=== PATIENT | male | born 1995 | race Hispanic/Latino ===

== ENCOUNTER 2019-04-21 19:26 | Emergency (ER) | payer BC ==
[2019-04-21] MEDS ORDERED: DIAZEPAM 5 MG TABLET ONE (20:44)
[2019-04-21] MEDS ORDERED: FENTANYL CITR 100 MCG/2 ML ONE (20:44)
--- NOTE | 2019-04-21 21:46 | EDPHYS ---
Physician Documentation [facility] Name: Antonio Watkins Age: 24 yrs Sex: Male : 1995 Arrival Date: 04/21/2019 Time: 19:31 Bed 7 Private MD: ED Physician Jaswinder Beltrán HPI: 04/21 21:06 This 24 yrs old Male presents to ER via Ambulatory with complaints of Shoulder snw Pain. 21:06 The patient or guardian complains of pain, that is acute, swelling, tenderness. left snw shoulder and left clavicle. Context: The problem was sustained at a Gym, bench pressing on 4th lift, pt felt a pop and chest pain, resulted from lifting or carrying, a heavy object, The patient experiences decreased range of motion, The patient reports no obvious deformity. Onset: The symptoms/episode began/occurred suddenly, 2 day(s) ago, and became persistent. Associated signs and symptoms: Pertinent positives: chest pain, neck pain, severe pain. Severity of symptoms: At their worst the symptoms were moderate, severe. Treatment prior to arrival includes: no previous treatment. The patient has not experienced similar symptoms in the past. The patient has been recently seen by a physician: other ER, told he had a bicep tear. . Historical: - Allergies: 19:37 No Known Allergies; aa1 - Home Meds: 19:37 None [Active]; aa1 - PMHx: 19:37 Heart Murmur; aa1 - PSHx: 19:37 None; aa1 - Immunization history:: Last tetanus immunization: > 10 years ago. - Social history:: Smoking status: Patient/guardian denies using tobacco. - Ebola Screening: : No symptoms or risks identified at this time. ROS: 21:01 Constitutional: Negative for fever, chills, and weight loss, Eyes: Negative for injury, snw pain, redness, and discharge, ENT: Negative for injury, pain, and discharge, Neck: Negative for injury, pain, and swelling, Cardiovascular: Negative for palpitations and edema, positive for chest pain to left and pain up left neck Respiratory: Negative for shortness of breath, cough, wheezing, and pleuritic chest pain, Abdomen/GI: Negative for abdominal pain, nausea, vomiting, diarrhea, and constipation, Back: Negative for injury and pain, : Negative for injury, bleeding, discharge, and swelling, MS/Extremity: Negative for deformity, + injury/bruising to left arm Skin: Negative for injury, rash, positive discoloration to left arm and axilla, Neuro: Negative for headache, weakness, numbness, tingling, and seizure. Exam: 21:02 Constitutional: This is a well developed, well nourished patient who is awake, alert, snw and in no acute distress. Head/Face: Normocephalic, atraumatic. Eyes: Pupils equal round and reactive to light, extra-ocular motions intact. Lids and lashes normal. Conjunctiva and sclera are non-icteric and not injected. Cornea within normal limits. Periorbital areas with no swelling, redness, or edema. ENT: Nares patent. No nasal discharge, no septal abnormalities noted. Tympanic membranes are normal and external auditory canals are clear. Oropharynx with no redness, swelling, or masses, exudates, or evidence of obstruction, uvula midline. Mucous membranes moist. 21:02 Cardiovascular: Regular rate and rhythm with a normal S1 and S2. No gallops, murmurs, or rubs. Normal PMI, no JVD. No pulse deficits. Abdomen/GI: Soft, non-tender, with normal bowel sounds. No distension or tympany. No guarding or rebound. No evidence of tenderness throughout. Back: No spinal tenderness. No costovertebral tenderness. Full range of motion. 21:02 Neuro: Awake and alert, GCS 15, oriented to person, place, time, and situation. Cranial nerves II-XII grossly intact. Motor strength 5/5 in all extremities. Sensory grossly intact. Cerebellar exam normal. Normal gait. Psych: Awake, alert, with orientation to person, place and time. Behavior, mood, and affect are within normal limits. 21:02 Neck: External neck: swelling, tenderness, that is moderate, of the left anterior aspect of neck. 21:02 Chest/axilla: Inspection: assymetry, of chest wall musculature - tender, swollen, mildly bruised left pectoral area, Palpation: tenderness, that is moderate, of the left clavicle and anterior aspect of left upper chest. 21:02 Respiratory: the patient does not display signs of respiratory distress, Respirations: shallow respirations, increases discomfort with large, deep breaths. 21:02 Musculoskeletal/extremity: Extremities: grossly normal except: noted in the anterior aspect of left upper chest: contusion, pain, swelling, tenderness, Circulation is intact in all extremities. 21:02 Skin: Appearance: normal except for affected area, injury, contusion(s), that are deep, of the left axilla and left bicep. Vital Signs: 19:37 BP 153 / 68; Pulse 92; Resp 16; Temp 98.9; Pulse Ox 99% on R/A; Weight 81.65 kg; Height aa1 5 ft. 6 in. (167.64 cm); Pain 9/10; 20:55 BP 150 / 70; Pulse 80; Resp 18; Pulse Ox 99% ; ea 21:39 BP 138 / 58; Pulse 78; Resp 18; Pulse Ox 98% ; ea 19:37 Body Mass Index 29.05 (81.65 kg, 167.64 cm) aa1 MDM: 20:24 Patient medically screened. snw 21:47 Data reviewed: vital signs, nurses notes. Data interpreted: Pulse oximetry: on room air snw is 98 %. Interpretation: normal. Counseling: I had a detailed discussion with the patient and/or guardian regarding: the historical points, exam findings, and any diagnostic results supporting the discharge/admit diagnosis, radiology results, the need for outpatient follow up, to return to the emergency department if symptoms worsen or persist or if there are any questions or concerns that arise at home. Special discussion: Based on the patient's history, exam, and Dx evaluation, there is no indication for emergent intervention or inpatient Tx. It is understood by the patient/guardian that if the Sx's persist or worsen they need to return immediately for re-evaluation. Based on the history and exam findings, there is no indication for further emergent testing or inpatient evaluation. I discussed with the patient/guardian the need to see the orthopedic surgeon for further evaluation of the symptoms. 04/21 20:24 Order name: Carotid Artery Bilateral US snw 04/21 20:24 Order name: Chest Pa And Lat (2 Views) XRAY snw 04/21 20:24 Order name: INCENTIVE SPIROMETRY snw 04/21 20:49 Order name: Shoulder Immobilizer: post xrays; Complete Time: 21:58 snw Administered Medications: 20:32 Drug: fentaNYL (PF) 50 mcg Route: IM; Site: right gluteus; la1 21:58 Follow up: Response: No adverse reaction; Pain is decreased ea 20:32 Drug: Valium 5 mg Route: PO; la1 21:58 Follow up: Response: No adverse reaction; Pain is decreased ea Disposition: 04/21/19 21:46 Discharged to Home. Impression: Pectoral muscle tear. - Condition is Stable. - Discharge Instructions: Muscle Strain, Muscle Pain, Adult, RICE for Routine Care of Injuries, How to Use a Shoulder Immobilizer, Heat Therapy. - Prescriptions for Tylenol- Codeine #3 300-30 mg Oral Tablet - take 2 tablets by ORAL route every 6 hours As needed; 20 tablet. orphenadrine citrate 100 mg Oral Tablet Sustained Release - take 1 tablet by ORAL route 2 times per day As needed; 20 tablet. - Work release form, Medication Reconciliation Form, Thank You Letter, Antibiotic Education, Prescription Opioid Use form. - Follow up: Private Physician; When: Tomorrow; Reason: Recheck today's complaints, Re-evaluation by your physician. Signatures: Dispatcher [employer] Alexa Covington RN RN aa1 Heather Montes De Oca, FOX FARMER-C FOX FARMER-Csnw Jatin Ken RN RN la1 Sheridan Almonte RN RN ea Corrections: (The following items were deleted from the chart) 22:00 21:46 04/21/2019 21:46 Discharged to Home. Impression: Pectoral muscle tear. Condition ea is Stable. Forms are Medication Reconciliation Form, Thank You Letter, Antibiotic Education, Prescription Opioid Use. Follow up: Private Physician; When: Tomorrow; Reason: Recheck today's complaints, Re-evaluation by your physician. snw
--- NOTE | 2019-04-21 21:46 | ER ---
Nurse's Notes [facility] Name: Antonio Watkins Age: 24 yrs Sex: Male : 1995 Arrival Date: 04/21/2019 Time: 19:31 Bed 7 Private MD: Diagnosis: Pectoral muscle tear Presentation: 04/21 19:35 Presenting complaint: Patient states: he was bench pressing in the gym 2 days ago and aa1 felt a rip in his L arm. C/O pain to L pectoral and bicep. Significant bruising noted to L bicep. Transition of care: patient was not received from another setting of care. Onset of symptoms was April 19, 2019. Risk Assessment: Do you want to hurt yourself or someone else?. Initial Sepsis Screen: Does the patient meet any 2 criteria? No. Patient's initial sepsis screen is negative. Does the patient have a suspected source of infection? No. Patient's initial sepsis screen is negative. Care prior to arrival: None. 19:35 Method Of Arrival: Ambulatory aa1 19:35 Acuity: NEO 4 aa1 Triage Assessment: 19:37 General: Appears in no apparent distress. comfortable, Behavior is calm, cooperative, aa1 appropriate for age. Historical: - Allergies: 19:37 No Known Allergies; aa1 - Home Meds: 19:37 None [Active]; aa1 - PMHx: 19:37 Heart Murmur; aa1 - PSHx: 19:37 None; aa1 - Immunization history:: Last tetanus immunization: > 10 years ago. - Social history:: Smoking status: Patient/guardian denies using tobacco. - Ebola Screening: : No symptoms or risks identified at this time. Screenin:46 Abuse screen: Denies threats or abuse. Nutritional screening: No deficits noted. la1 Tuberculosis screening: No symptoms or risk factors identified. Fall Risk None identified. Assessment: 19:45 General: Appears in no apparent distress. Behavior is calm, cooperative. Pain: la1 Complains of pain in left clavicle and anterior aspect of left upper chest and left bicep. bruising noted to left bicep area, swollen area to left pectoral area. Neuro: Level of Consciousness is awake, alert, obeys commands, Oriented to person, place, time, situation. Cardiovascular: Capillary refill < 3 seconds Patient's skin is warm and dry. Respiratory: Airway is patent Respiratory effort is even, unlabored, Respiratory pattern is regular, symmetrical. GI: No signs and/or symptoms were reported involving the gastrointestinal system. : No signs and/or symptoms were reported regarding the genitourinary system. 20:35 General: Appears in no apparent distress. Behavior is calm, cooperative. Pain: ea Complains of pain in anterior aspect of left upper chest. Neuro: Level of Consciousness is awake, alert, obeys commands, Oriented to person, place, time, situation. Cardiovascular: Patient's skin is warm and dry. Respiratory: Airway is patent Respiratory effort is even, unlabored, Respiratory pattern is regular, symmetrical. GI: No signs and/or symptoms were reported involving the gastrointestinal system. : No signs and/or symptoms were reported regarding the genitourinary system. 20:36 Reassessment: Patient is alert, oriented x 3, equal unlabored respirations, skin ea warm/dry/pink. Respiratory at bedside educating pt on incentive spirometry use. 21:40 Reassessment: Patient and/or family updated on plan of care and expected duration. Pain ea level reassessed. Patient is alert, oriented x 3, equal unlabored respirations, skin warm/dry/pink. 21:59 Reassessment: Patient and/or family updated on plan of care and expected duration. Pain ea level reassessed. Patient is alert, oriented x 3, equal unlabored respirations, skin warm/dry/pink. Discharge instruction given to patient, verbalized the understanding of instruction. Pt left ED ambulatory with significant other. Vital Signs: 19:37 BP 153 / 68; Pulse 92; Resp 16; Temp 98.9; Pulse Ox 99% on R/A; Weight 81.65 kg; Height aa1 5 ft. 6 in. (167.64 cm); Pain 9/10; 20:55 BP 150 / 70; Pulse 80; Resp 18; Pulse Ox 99% ; ea 21:39 BP 138 / 58; Pulse 78; Resp 18; Pulse Ox 98% ; ea 19:37 Body Mass Index 29.05 (81.65 kg, 167.64 cm) aa1 ED Course: 19:31 Patient arrived in ED. ag3 19:36 Triage completed. aa1 19:37 Arm band placed on right wrist. Patient placed in an exam room, on a stretcher. aa1 19:39 Jatin Ken, RN is Primary Nurse. la1 19:46 Call light in reach. Side rails up X 1. Adult w/ patient. la1 20:16 Heather Mont[facility] De Oca [facility]C [facility] snw 20:16 Jaswinder Beltrán MD is Attending Physician. snw 21:05 Chest Pa And Lat (2 Views) XRAY In Process Unspecified. EDMS 21:16 Carotid Artery Bilateral US In Process Unspecified. EDMS 22:00 No provider procedures requiring assistance completed. Patient did not have IV access ea during this emergency room visit. Administered Medications: 20:32 Drug: fentaNYL (PF) 50 mcg Route: IM; Site: right gluteus; la1 21:58 Follow up: Response: No adverse reaction; Pain is decreased ea 20:32 Drug: Valium 5 mg Route: PO; la1 21:58 Follow up: Response: No adverse reaction; Pain is decreased ea Outcome: 21:46 Discharge ordered by MD. snw 21:59 Discharged to home ambulatory, with family. ea 21:59 Condition: improved 21:59 Discharge instructions given to patient, Instructed on discharge instructions, follow up and referral plans. medication usage, Demonstrated understanding of instructions, follow-up care, medications, Prescriptions given X 2. 22:00 Patient left the ED. ea Signatures: Dispatcher [employer] EDMS Alexa Aguirre RN RN aa1 Heather Montes De Oca FNP-C [employer]ERILE [employer] TECH-Csnw Jatin Ken RN RN laSheridan Alvarado RN Stephanie Kwan ea Brandan
--- NOTE | 2019-04-22 08:41 | RAD REPORT ---
EXAM DESCRIPTION: US - CP - 04/21/2019 9:15 pm CLINICAL HISTORY: Neck pain COMPARISON: None. TECHNIQUE: Real-time sonographic evaluation of both carotid systems was performed. Gutiérrez scale and Do ppler interrogation were performed with waveform tracing bilaterally. FINDINGS: Normal high resistance waveforms are noted in both external carotid arteries. The common c arotid arteries and internal carotid arteries show normal low resistance waveforms. No significant plaque formation is seen. Peak systolic and end diastolic velocity values and the ICA/ CCA ratios are in the non-hemodynamically significant range. Antegrade flow seen in both vertebral arteries. Velocity values and ratios were recorded and are retained in the patient's imaging records. IMPRESSION: No dissection or acute vascular finding. No evidence of a stenosis.
--- NOTE | 2019-04-22 08:50 | RAD REPORT ---
EXAM DESCRIPTION: RAD - Chest Pa And Lat (2 Views) - 04/21/2019 9:08 pm CLINICAL HISTORY: Chest pain following lifting injury COMPARISON: November 2017 TECHNIQUE: PA and lateral views of the chest were obtained. FINDINGS: The lungs are clear. Heart size is normal and central vasculature is within normal limit s. No pleural effusion or pneumothorax seen. No acute bony finding noted. No aortic abnormality. No interval change identified. IMPRESSION: No acute cardiopulmonary process.
== END 2019-04-21 22:00 | disposition home or self-care (01) ==
LOC: ER 19:26
DX: S29.011A Strain of muscle and tendon of front wall of thorax, initial encounter (principal); X50.0XXA Overexertion from strenuous movement or load, initial encounter; Y93.B9 Activity, other involving muscle strengthening exercises; Y92.39 Other specified sports and athletic area as the place of occurrence of the external cause; R01.1 Cardiac murmur, unspecified
CPT/HCPCS: 71046; 93880; 96372; 99283; J3010

== ENCOUNTER 2019-04-23 22:18 | Emergency (ER) | payer BC ==
[2019-04-23] MEDS ORDERED: NA CHLORIDE 0.9% 1,000 ML ONE (23:12)
[2019-04-23 23:34] LABS: Absolute Monocytes 0.7 K/uL (0.1-1.3); Absolute Neutrophil 7.2 K/uL (1.8-8.0); Basophils % 0.3 % (0-1.3); Eosinophils % 0.1 % (0-4.4); Hematocrit 45.6 % (39.6-49.0); Lymphocytes % 19.8 % (15.3-44.8); MPV 10.1 fL (7.6-11.3); Monocytes % 7.2 % (3.3-12.3); RBC Red Blood Cell Count 5.28 M/uL (4.33-5.43)
[2019-04-23 23:39] LABS: Protime INR 0.98
[2019-04-23 23:51] LABS: ALT/SGPT 35 U/L (12-78); AST/SGOT 24 U/L (15-37); Albumin 4.1 g/dL (3.4-5.0); Alkaline Phosphatase 84 U/L (45-117); BUN Blood Urea Nitrogen 10 mg/dL (7-18); Bicarbonate 31 mmol/L (21-32); Bilirubin Direct < 0.1 mg/dL (0-0.2); Bilirubin Total 0.3 mg/dL (0.2-1.0); Glucose Level 104 mg/dL (74-106); Potassium 3.1 mmol/L (3.5-5.1); Protein, Total 8.3 g/dL (6.4-8.2); Sodium Level 139 mmol/L (136-145)
[2019-04-24 00:29] LABS: Barbiturates NEGATIVE (NEGATIVE); Benzodiazepines NEGATIVE (NEGATIVE); Cocaine NEGATIVE (NEGATIVE); METHAMPHETAM NEGATIVE (NEGATIVE); Methadone NEGATIVE (NEGATIVE); Opiates POSITIVE (NEGATIVE); Phencyclidine NEGATIVE (NEGATIVE); THC Cannibis NEGATIVE (NEGATIVE)
[2019-04-24 00:32] LABS: Urine Blood NEGATIVE (NEG); Urine Glucose NEGATIVE (NEG); Urine Protein NEGATIVE (NEG); Urine Specific Gravity <1.005 (1.005-1.030); Urine pH 5.5 (5.0-7.0)
[2019-04-24] MEDS ORDERED: POTASSIUM CL SA 10 MEQ TAB PO ONE (00:44)
--- NOTE | 2019-04-24 03:16 | ER ---
Nurse's Notes [facility] Name: Antonio Watkins Age: 24 yrs Sex: Male : 1995 Arrival Date: 04/23/2019 Time: 22:21 Bed 18 Private MD: Rohit Jackson Diagnosis: Tylenol Overdose, non-toxic Presentation: 04/23 22:30 Presenting complaint: Patient states: "I intentionally took 12-13 tablets of Tylenol cc3 with Codeine plus 2 tablets of sleeping pills at around 2000H tonight because I'm depressed with a lot of things. I also took 2 bottles of beer tonight" Patient verbally said that he has no intention of killing himself nor others. Transition of care: patient was not received from another setting of care. Onset of symptoms was April 23, 2019. Risk Assessment: Do you want to hurt yourself or someone else? Patient reports no desire to harm self or others. Initial Sepsis Screen: Does the patient meet any 2 criteria? No. Patient's initial sepsis screen is negative. Does the patient have a suspected source of infection? No. Patient's initial sepsis screen is negative. Care prior to arrival: None. 22:30 Method Of Arrival: Ambulatory cc3 22:30 Acuity: NEO 2 cc3 Triage Assessment: 22:30 General: Appears in no apparent distress. comfortable, Behavior is calm, cooperative, cc3 appropriate for age. Pain: Denies pain. EENT: No signs and/or symptoms were reported regarding the EENT system. Neuro: Level of Consciousness is awake, alert, obeys commands, Oriented to person, place, time, situation, Appropriate for age. Cardiovascular: Denies chest pain, Patient's skin is warm and dry. Respiratory: Airway is patent Respiratory effort is even, unlabored, Respiratory pattern is regular, symmetrical. GI: Abdomen is round non-distended. : No signs and/or symptoms were reported regarding the genitourinary system. Derm: Bruising that is left upper arm. Musculoskeletal: Circulation, motion, and sensation intact. Range of motion: limited in left arm. Historical: - Allergies: 22:30 No Known Allergies; cc3 - PMHx: 22:30 Heart Murmur; cc3 - Immunization history:: Adult Immunizations up to date. - Social history:: Smoking status: Patient/guardian denies using tobacco, never smoked. - Ebola Screening: : No symptoms or risks identified at this time. Screenin:30 Abuse screen: Denies threats or abuse. Denies injuries from another. Nutritional cc3 screening: No deficits noted. Tuberculosis screening: No symptoms or risk factors identified. Fall Risk Ambulatory Aid- None/Bed Rest/Nurse Assist (0 pts). Gait- Normal/Bed Rest/Wheelchair (0 pts) Mental Status- Oriented to own ability (0 pts). Assessment: 22:30 General: see triage assessment. cc3 23:00 Reassessment: Poison control contacted. Advised doing OD panel, UDS, and ALC levels. 12 jb4 lead EKG, symptomatic/supportive care. 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 No activated charcoal advised due to elapsed period of time. Provider and primary nurse notified of recommendations. 23:10 Reassessment: Patient appears in no apparent distress at this time. Patient and/or cc3 family updated on plan of care and expected duration. Pain level reassessed. Patient is alert, oriented x 3, equal unlabored respirations, skin warm/dry/pink. BALAJI Zhu called the poison control center and relayed to KERA Carmona their suggested interventions. 06 00:22 Reassessment: Patient appears in no apparent distress at this time. Patient and/or cc3 family updated on plan of care and expected duration. Pain level reassessed. Patient is alert, oriented x 3, equal unlabored respirations, skin warm/dry/pink. 01:15 Reassessment: Patient appears in no apparent distress at this time. Patient and/or cc3 family updated on plan of care and expected duration. Pain level reassessed. Patient is alert, oriented x 3, equal unlabored respirations, skin warm/dry/pink. KERA Mcintyre said the patient now is considered as suicidal and needs a sitter, charge nurse Yamila informed. Patient denies pain at this time. 02:03 Reassessment: Patient appears in no apparent distress at this time. Patient and/or cc3 family updated on plan of care and expected duration. Pain level reassessed. Patient is alert, oriented x 3, equal unlabored respirations, skin warm/dry/pink. 02:36 Reassessment: Patient appears in no apparent distress at this time. Patient and/or cc3 family updated on plan of care and expected duration. Pain level reassessed. Patient is alert, oriented x 3, equal unlabored respirations, skin warm/dry/pink. [facility] staff came and currently interviewing the patient at bedside. 03:40 Reassessment: Patient appears in no apparent distress at this time. Patient and/or cc3 family updated on plan of care and expected duration. Pain level reassessed. Patient is alert, oriented x 3, equal unlabored respirations, skin warm/dry/pink. Dr. Sparks discharged the patient home, no prescription given. IV cannula removed and patient left ER vitally stable and ambulatory with his mother. Patient denies pain at this time. Patient states feeling better. Patient states symptoms have improved. Overdose: 04/23 22:30 Patient took 12-13 tablets of Tylenol with Codeine and 2 tabs of sleeping pills. cc3 Patient said he took 2 bottles of beer as well. Overdose occurred 3-4 hours ago. Vital Signs: 22:30 BP 172 / 99; Pulse 116; Resp 20 S; Temp 98.9(O); Pulse Ox 100% on R/A; Weight 79.38 kg cc3 (R); Height 5 ft. 6 in. (167.64 cm) (R); 23:30 BP 176 / 102; Pulse 113; Resp 17 S; Pulse Ox 100% on R/A; cc3 12 00:11 Pulse 115; Resp 17 S; Pulse Ox 100% on R/A; cc3 03:40 BP 141 / 72; Pulse 100; Resp 18; Pulse Ox 100% on R/A; oe 04/23 22:30 Body Mass Index 28.25 (79.38 kg, 167.64 cm) cc3 ED Course: 04/23 22:21 Patient arrived in ED. es 22:21 Rohit Jackson MD is Private Physician. es 22:24 Mathew Mcintyre PA is PHCP. jr8 22:24 Silvestre Sparks MD is Attending Physician. jr8 22:28 Jillian Carrera is Primary Nurse. cc3 22:30 Patient has correct armband on for positive identification. Placed in gown. Bed in low cc3 position. Call light in reach. Side rails up X 1. air sampling and monitoring on. Pulse ox on. NIBP on. 22:30 Arm band placed on right wrist. EKG completed in triage. Results shown to MD. cc3 22:46 Triage completed. cc3 23:00 Inserted saline lock: 20 gauge in right antecubital area, using aseptic technique. cc3 Blood collected. 04/24 01:15 Safety checks: Items removed: yes. Door open/sign placed on door: yes. Family/friend oe present: yes. Sitter present: Yes. 01:30 Safety checks: Items removed: yes. Door open/sign placed on door: yes. Family/friend oe present: yes. Sitter present: Yes. 01:45 Safety checks: Items removed: yes. Door open/sign placed on door: yes. Family/friend oe present: yes. Sitter present: Yes. 02:00 Safety checks: Items removed: yes. Door open/sign placed on door: yes. Family/friend oe present: yes. Sitter present: Yes. 02:15 Safety checks: Items removed: yes. Door open/sign placed on door: yes. Family/friend oe present: yes. Sitter present: Yes. 02:30 Safety checks: Items removed: yes. Door open/sign placed on door: yes. Family/friend oe present: yes. Sitter present: Yes. 02:45 Safety checks: Items removed: yes. Door open/sign placed on door: yes. Family/friend oe present: yes. Sitter present: Yes. 03:00 Safety checks: Items removed: yes. Door open/sign placed on door: yes. Family/friend oe present: yes. Sitter present: Yes. 03:15 Safety checks: Items removed: yes. Door open/sign placed on door: yes. Family/friend oe present: yes. Sitter present: Yes. 03:30 Safety checks: Items removed: yes. Door open/sign placed on door: yes. Family/friend oe present: yes. Sitter present: Yes. 03:40 No provider procedures requiring assistance completed. IV discontinued, intact, cc3 bleeding controlled, No redness/swelling at site. Pressure dressing applied. Administered Medications: 04/23 23:00 Drug: NS 0.9% 1000 ml Route: IV; Rate: 1000 ml; Site: right antecubital; cc3 04/24 00:00 Follow up: Response: No adverse reaction; IV Status: Completed infusion; IV Intake: cc3 1000ml 00:30 Drug: Potassium Chloride 40 mEq Route: PO; cc3 01:00 Follow up: Response: No adverse reaction cc3 Intake: 00:00 IV: 1000ml; Total: 1000ml. cc3 Outcome: 03:15 Discharge ordered by . rn 03:40 Discharged to home ambulatory, with family. cc3 03:40 Condition: stable 03:40 Discharge instructions given to patient, family, Instructed on discharge instructions, follow up and referral plans. Demonstrated understanding of instructions, follow-up care. 03:58 Patient left the ED. cc3 Signatures: Katalina Adam Roman, MD MD rn Roszak, Josh, PA PA jr8 Karlos Soto RN RN jb4 Yandel Erickson Charlene cc3
--- NOTE | 2019-04-24 03:16 | EDPHYS ---
Physician Documentation [facility] Name: Antonio Watkins Age: 24 yrs Sex: Male : 1995 Arrival Date: 04/23/2019 Time: 22:21 Bed 18 Private MD: Rohit Jackson ED Physician Silvestre Sparks HPI: 04/23 23:05 This 24 yrs old Male presents to ER via Ambulatory with complaints of Overdose.jr8 23:05 The patient presents to the emergency department after a known overdose, that was jr8 intentional. Context: Method: the patient has a confirmed or suspected ingestion, of acetaminophen, of narcotics. Associated signs and symptoms: The patient has no apparent associated signs or symptoms. Severity of symptoms: At their worst the symptoms were mild in the emergency department the symptoms are unchanged. The patient has not experienced similar symptoms in the past. The patient has not recently seen a physician. Patient brought in by family after ingesting upwards of 13 Tylenol # 3 throughout today and tonight between 6-7 pm. Stated that he has been depressed and likes the "high" that the pills make him feel. Denies suicidal ideations . Historical: - Allergies: 22:30 No Known Allergies; cc3 - PMHx: 22:30 Heart Murmur; cc3 - Immunization history:: Adult Immunizations up to date. - Social history:: Smoking status: Patient/guardian denies using tobacco, never smoked. - Ebola Screening: : No symptoms or risks identified at this time. ROS: 23:05 Eyes: Negative for injury, pain, redness, and discharge, ENT: Negative for injury, jr8 pain, and discharge, Neck: Negative for injury, pain, and swelling, Cardiovascular: Negative for chest pain, palpitations, and edema, Respiratory: Negative for shortness of breath, cough, wheezing, and pleuritic chest pain, Abdomen/GI: Negative for abdominal pain, nausea, vomiting, diarrhea, and constipation, Back: Negative for injury and pain, MS/Extremity: Negative for injury and deformity, Skin: Negative for injury, rash, and discoloration, Neuro: Negative for headache, weakness, numbness, tingling, and seizure. 23:05 Psych: Positive for depression, Negative for anxiety, suicide gesture, suicidal ideation. Exam: 23:05 Eyes: Pupils equal round and reactive to light, extra-ocular motions intact. Lids and jr8 lashes normal. Conjunctiva and sclera are non-icteric and not injected. Cornea within normal limits. Periorbital areas with no swelling, redness, or edema. ENT: Nares patent. No nasal discharge, no septal abnormalities noted. Tympanic membranes are normal and external auditory canals are clear. Oropharynx with no redness, swelling, or masses, exudates, or evidence of obstruction, uvula midline. Mucous membranes moist. Neck: Trachea midline, no thyromegaly or masses palpated, and no cervical lymphadenopathy. Supple, full range of motion without nuchal rigidity, or vertebral point tenderness. No Meningismus. Cardiovascular: Regular rate and rhythm with a normal S1 and S2. No gallops, murmurs, or rubs. Normal PMI, no JVD. No pulse deficits. Respiratory: Lungs have equal breath sounds bilaterally, clear to auscultation and percussion. No rales, rhonchi or wheezes noted. No increased work of breathing, no retractions or nasal flaring. Abdomen/GI: Soft, non-tender, with normal bowel sounds. No distension or tympany. No guarding or rebound. No evidence of tenderness throughout. Back: No spinal tenderness. No costovertebral tenderness. Full range of motion. Skin: Warm, dry with normal turgor. Normal color with no rashes, no lesions, and no evidence of cellulitis. MS/ Extremity: Pulses equal, no cyanosis. Neurovascular intact. Full, normal range of motion. Neuro: Awake and alert, GCS 15, oriented to person, place, time, and situation. Cranial nerves II-XII grossly intact. Motor strength 5/5 in all extremities. Sensory grossly intact. Cerebellar exam normal. Normal gait. Psych: Awake, alert, with orientation to person, place and time. Behavior, mood, and affect are within normal limits. Vital Signs: 22:30 BP 172 / 99; Pulse 116; Resp 20 S; Temp 98.9(O); Pulse Ox 100% on R/A; Weight 79.38 kg cc3 (R); Height 5 ft. 6 in. (167.64 cm) (R); 23:30 BP 176 / 102; Pulse 113; Resp 17 S; Pulse Ox 100% on R/A; cc3 12 00:11 Pulse 115; Resp 17 S; Pulse Ox 100% on R/A; cc3 03:40 BP 141 / 72; Pulse 100; Resp 18; Pulse Ox 100% on R/A; oe 04/23 22:30 Body Mass Index 28.25 (79.38 kg, 167.64 cm) cc3 MDM: 04/23 22:24 Patient medically screened. [facility] 04/24 02:11 Data reviewed: vital signs, nurses notes, lab test result(s), EKG. Data interpreted: jr8 Pulse oximetry: on room air is 100 %. Interpretation: normal. Counseling: I had a detailed discussion with the patient and/or guardian regarding: the historical points, exam findings, and any diagnostic results supporting the discharge/admit diagnosis, lab results. Transition of care: After a detail discussion of the patient's case, care is transferred to Silvestre Sparks MD. 03:09 Differential diagnosis: Ingestion/exposure to tylenol with codeine. ED course: Patient rn evaluated by [facility] deemed safe for discharge. Patient entire time has denied suicidal ideation or attempt, I spoke with him again and still denies suicidal ideations. Mother is here, is going to take him home, no weapons, has never done anything like this before, and patient and mother feel safe with plan of going home and w/u as outpt. Safety plan completed. . 04/23 23:31 Order name: Basic Metabolic Panel; Complete Time: 00:00 [facility] 04/23 23:31 Order name: Liver (Hepatic) Function; Complete Time: 00:00 [facility] 04/23 23:31 Order name: Acetaminophen Level; Complete Time: 00: [facility] 04/23 23:31 Order name: Alcohol Serum/Plasma; Complete Time: 00:00 [facility] 04/23 23:31 Order name: Salicylates Level; Complete Time: 00:00 [facility] 04/23 22:45 Order name: EKG; Complete Time: 00:17 [facility] 04/23 22:45 Order name: EKG - Nurse/Tech; Complete Time: 23:24 [facility] 04/23 22:45 Order name: IV Saline Lock; Complete Time: 23:24 [facility] 04/23 22:45 Order name: Labs collected and sent; Complete Time: 23:24 [facility] 04/23 22:45 Order name: Urine Dipstick-Ancillary (obtain specimen); Complete Time: 00:01 jr8 04/23 23:31 Order name: CBC with Automated Diff; Complete Time: 23:40 EDMS 04/23 23:31 Order name: Protime (+INR); Complete Time: 23:42 EDMS 04/23 23:31 Order name: PTT, Activated Partial Thromb; Complete Time: 23:42 EDMS 04/23 23:59 Order name: Urine Dipstick--Ancillary (enter results); Complete Time: 00:46 ar5 04/24 00:18 Order name: Urine Drug Screen; Complete Time: 00:46 EDMS Administered Medications: 04/23 23:00 Drug: NS 0.9% 1000 ml Route: IV; Rate: 1000 ml; Site: right antecubital; cc3 04/24 00:00 Follow up: Response: No adverse reaction; IV Status: Completed infusion; IV Intake: cc3 1000ml 00:30 Drug: Potassium Chloride 40 mEq Route: PO; cc3 01:00 Follow up: Response: No adverse reaction cc3 Disposition: 04:08 Co-signature as Attending Physician, Silvestre Sparks MD. rn Disposition: 04/24/19 03:15 Discharged to Home. Impression: Tylenol Overdose, non-toxic. - Condition is Stable. - Discharge Instructions: Acetaminophen Overdose. - Medication Reconciliation Form, Thank You Letter, Antibiotic Education, Prescription Opioid Use form. - Follow up: Private Physician; When: As needed; Reason: Recheck today's complaints, Re-evaluation by your physician. - Problem is new. - Symptoms have improved. Signatures: Dispatcher [employer] Silvestre Quinn MD MD rn Roszak, Josh, PA PA jr8 Jillian Carrera cc3 Corrections: (The following items were deleted from the chart) 00:17 04/23 23:05 Patient brought in by family after ingesting upwards of 13 Tylenol # 3 jr8 throughout today and tonight between 6-8 pm. Stated that he has been depressed and likes the "high" that the pills make him feel. Denies suicidal ideations . jr8 04/24 00:38 00:17 URINE DRUG SCREEN+CHEM UR.LAB.BRZ ordered. EDMS EDMS 00:39 00:17 CBC+H.LAB.BRZ ordered. EDMS EDMS 00:39 00:17 PROTIME (+INR)+COAG.LAB.BRZ ordered. EDMS EDMS 00:39 00:17 PTT, ACTIVATED+COAG.LAB.BRZ ordered. EDMS EDMS 00:39 00:17 SALICYLATE+C.LAB.BRZ ordered. EDMS EDMS 00:40 00:17 ACETAMINOPHEN+C.LAB.BRZ ordered. EDMS EDMS 00:40 00:17 BASIC METABOLIC PANEL+C.LAB.BRZ ordered. EDMS EDMS 00:40 00:17 ETHANOL+C.LAB.BRZ ordered. EDMS EDMS 00:40 00:17 HEPATIC FUNCTION+C.LAB.BRZ ordered. EDMS EDMS 03:58 03:15 04/24/2019 03:15 Discharged to Home. Impression: Tylenol Overdose, non-toxic. cc3 Condition is Stable. Forms are Medication Reconciliation Form, Thank You Letter, Antibiotic Education, Prescription Opioid Use. Follow up: Private Physician; When: As needed; Reason: Recheck today's complaints, Re-evaluation by your physician. Problem is new. Symptoms have improved. rn
--- NOTE | 2019-04-24 06:17 | EKG ---
Test Date: 2019-04-23 Test Time: 23:14:26 Admitting Counselor: ADY MEASUREMENT RESULTS: Intervals: Rate: 110 NE: 132 QRSD: 90 QT: 326 QTc: 441 [place]: P: 53 NE: 132 QRS: 69 T: 8 INTERPRETIVE STATEMENTS: Sinus tachycardia Otherwise normal ECG Compared to ECG 11/17/2017 13:59:13 Sinus rhythm no longer present ST (T wave) deviation no longer present Electronically Signed On 04-24-19 06:16:39 CDT by Dawit Villanueva
== END 2019-04-24 03:58 | disposition home or self-care (01) ==
LOC: ER 22:18
DX: T40.601A Poisoning by unspecified narcotics, accidental (unintentional), initial encounter (principal); F32.9 Major depressive disorder, single episode, unspecified
CPT/HCPCS: 36415; 80048; 80076; 80307; 80320; 80329; 81003; 85025; 85610; 85730; 93005; 96360; 99284; J7030

== ENCOUNTER 2019-04-26 22:41 | Emergency (ER) | payer BC ==
[2019-04-26 23:36] LABS: Absolute Lymphocytes (CBC) 2.4 K/uL (0.7-4.9); Absolute Monocytes 0.6 K/uL (0.1-1.3); Absolute Neutrophil 7.6 K/uL (1.8-8.0); Basophils % 0.3 % (0-1.3); Eosinophils % 0.5 % (0-4.4); Hematocrit 46.4 % (39.6-49.0); Lymphocytes % 22.3 % (15.3-44.8); MPV 9.8 fL (7.6-11.3); Monocytes % 5.7 % (3.3-12.3); RBC Red Blood Cell Count 5.46 M/uL (4.33-5.43)
[2019-04-26 23:39] LABS: Protime INR 0.96
[2019-04-26 23:56] LABS: ALT/SGPT 37 U/L (12-78); AST/SGOT 19 U/L (15-37); Albumin 4.1 g/dL (3.4-5.0); Alkaline Phosphatase 100 U/L (45-117); BUN Blood Urea Nitrogen 10 mg/dL (7-18); Bicarbonate 24 mmol/L (21-32); Bilirubin Direct < 0.1 mg/dL (0-0.2); Bilirubin Total 0.3 mg/dL (0.2-1.0); Glucose Level 135 mg/dL (74-106); Potassium 3.5 mmol/L (3.5-5.1); Sodium Level 141 mmol/L (136-145)
[2019-04-27 00:17] LABS: Barbiturates NEGATIVE (NEGATIVE); Benzodiazepines NEGATIVE (NEGATIVE); Cocaine NEGATIVE (NEGATIVE); METHAMPHETAM NEGATIVE (NEGATIVE); Methadone NEGATIVE (NEGATIVE); Opiates NEGATIVE (NEGATIVE); Phencyclidine NEGATIVE (NEGATIVE); THC Cannibis NEGATIVE (NEGATIVE)
[2019-04-27 01:01] LABS: Urine Blood NEGATIVE (NEG); Urine Glucose NEGATIVE (NEG); Urine Protein NEGATIVE (NEG); Urine Specific Gravity <1.005 (1.005-1.030)
--- NOTE | 2019-04-27 01:15 | EDPHYS ---
Physician Documentation [facility] Name: Antonio Watkins Age: 24 yrs Sex: Male : 1995 Arrival Date: 04/26/2019 Time: 22:44 Bed 17 Private MD: Rohit Jackson ED Physician Kendrick Montelongo HPI: 04/27 00:45 This 24 yrs old Male presents to ER via Ambulatory with complaints of Suicidal snw Ideation. 00:45 The patient presents to the emergency department with a history of substance abuse, snw Type: beer, the amount of abuse is unknown, for years, a history of a suicide gesture, where the patient took pills/medications, narcotics, 2 days ago, suicide ideation, and the patient has a plan, to overdose with medications. Onset: The symptoms/episode began/occurred gradually. Past psychiatric history: the patient has had a prior suicide gesture, where the patient took pills/meds, this week, the patient does not have a previous inpatient psychiatric history, the patient's last psychiatric treatment was none. Associated signs and symptoms: Pertinent positives; anxiety, substance abuse, suicide ideation. Severity of symptoms: At their worst the symptoms were moderate in the emergency department the symptoms are unchanged. The patient has not experienced similar symptoms in the past. The patient has been recently seen by a physician: The patient has been recently seen at the [facility], for unrelated complaints, torn pec muscle, attempted overdose with narcotics given for muscle tear. Historical: - Allergies: 04/26 22:54 No Known Allergies; jd3 - Home Meds: 22:54 None [Active]; jd3 - PMHx: 22:54 Heart Murmur; jd3 - PSHx: 22:54 None; jd3 - Immunization history:: Adult Immunizations up to date. - Social history:: Smoking status: Patient uses tobacco products, denies chronic smoking, but will smoke occasionally, chewing tobacco, Patient uses alcohol, on a daily basis. - Ebola Screening: : Patient negative for fever greater than or equal to 101.5 degrees Fahrenheit, and additional compatible Ebola Virus Disease symptoms. ROS: 04/27 00:44 Constitutional: Negative for fever, chills, and weight loss, Eyes: Negative for injury, snw pain, redness, and discharge, ENT: Negative for injury, pain, and discharge, Neck: Negative for injury, pain, and swelling, Cardiovascular: Negative for chest pain, palpitations, and edema, Respiratory: Negative for shortness of breath, cough, wheezing, and pleuritic chest pain, Abdomen/GI: Negative for abdominal pain, nausea, vomiting, diarrhea, and constipation, Back: Negative for injury and pain, : Negative for injury, bleeding, discharge, and swelling, MS/Extremity: Negative for injury and deformity, Skin: Negative for injury, rash, and discoloration, Neuro: Negative for headache, weakness, numbness, tingling, and seizure. Psych: Positive for depression, alcohol dependence, suicide gesture, suicidal ideation. Exam: 00:41 Constitutional: This is a well developed, well nourished patient who is awake, alert, snw and in no acute distress. Head/Face: Normocephalic, atraumatic. Eyes: Pupils equal round and reactive to light, extra-ocular motions intact. Lids and lashes normal. Conjunctiva and sclera are non-icteric and not injected. Cornea within normal limits. Periorbital areas with no swelling, redness, or edema. ENT: Nares patent. No nasal discharge, no septal abnormalities noted. Tympanic membranes are normal and external auditory canals are clear. Oropharynx with no redness, swelling, or masses, exudates, or evidence of obstruction, uvula midline. Mucous membranes moist. Neck: Trachea midline, no thyromegaly or masses palpated, and no cervical lymphadenopathy. Supple, full range of motion without nuchal rigidity, or vertebral point tenderness. No Meningismus. Cardiovascular: Regular rate and rhythm with a normal S1 and S2. No gallops, murmurs, or rubs. Normal PMI, no JVD. No pulse deficits. Respiratory: Lungs have equal breath sounds bilaterally, clear to auscultation and percussion. No rales, rhonchi or wheezes noted. No increased work of breathing, no retractions or nasal flaring. Abdomen/GI: Soft, non-tender, with normal bowel sounds. No distension or tympany. No guarding or rebound. No evidence of tenderness throughout. Back: No spinal tenderness. No costovertebral tenderness. Full range of motion. MS/ Extremity: Pulses equal, no cyanosis. Neurovascular intact. Full, normal range of motion. Neuro: Awake and alert, GCS 15, oriented to person, place, time, and situation. Cranial nerves II-XII grossly intact. Motor strength 5/5 in all extremities. Sensory grossly intact. Cerebellar exam normal. Normal gait. 00:41 Chest/axilla: Inspection: ecchymosis, that is mild, that is moderate, of the anterior aspect of left upper chest Palpation: tenderness, that is mild, that is moderate, of the anterior aspect of left upper chest, Axilla: ecchymosis. 00:43 Psych: Behavior/mood is suicidal, depressed, Affect is calm, Oriented to person, place, snw time, Patient having thoughts of suicide. Plan for suicide is overdose a few days ago on T#3, pt states he wants to end everything. Daily ETOH x many years, states ETOH abuse has been worse lately Judgement / Insight is normal. Delusions/hallucinations are not present. Vital Signs: 04/26 22:55 BP 141 / 66; Pulse 105; Resp 17 S; Temp 98.4(O); Pulse Ox 97% on R/A; Weight 81.65 kg jd3 (R); Height 5 ft. 6 in. (167.64 cm) (R); Pain 0/10; 04/27 01:15 BP 141 / 72; Pulse 94; Resp 16; Temp 97.9(O); Pulse Ox 98% on R/A; Pain 0/10; ed1 01:42 Pain 8/10; ed1 02:17 BP 139 / 80; Pulse 97; Resp 17; Temp 98.1(O); Pulse Ox 100% on R/A; Pain 5/10; ed1 04/26 22:55 Body Mass Index 29.05 (81.65 kg, 167.64 cm) jd3 01:42 Pt. just reported headache ed1 MDM: 04/26 22:59 Patient medically screened. snw 04/27 00:47 Data reviewed: vital signs, nurses notes. Data interpreted: Pulse oximetry: on room air snw is 97 %. Interpretation: normal. Counseling: I had a detailed discussion with the patient and/or guardian regarding: the historical points, exam findings, and any diagnostic results supporting the discharge/admit diagnosis, the presence of at least one elevated blood pressure reading (>120/80) during this emergency department visit, lab results, the need to transfer to another facility, [facility] does not immediately have the required specialist. Awaiting: Psychiatric stem roller transfer. 01:07 Physician consultation: Dr. Robert Umanzor was called at 01:08, was contacted at snw 01:08, regarding regarding transfer, to a psychiatric hospital. Robert Umanzor MD accepts pt in transfer. 04/26 22:59 Order name: Acetaminophen; Complete Time: 00:03 snw 04/26 22:59 Order name: Basic Metabolic Panel snw 04/26 22:59 Order name: CBC with Diff; Complete Time: 23:45 snw 04/26 22:59 Order name: ETOH Level; Complete Time: 00:03 snw 04/26 22:59 Order name: Hepatic Function; Complete Time: 00:03 snw 04/26 22:59 Order name: PT-INR; Complete Time: 23:45 snw 04/26 22:59 Order name: Ptt, Activated; Complete Time: 23:45 snw 04/26 22:59 Order name: Salicylate; Complete Time: 00:26 snw 04/26 22:59 Order name: Urine Drug Screen; Complete Time: 00:26 snw 04/26 22:59 Order name: EKG; Complete Time: 23:03 snw 04/26 22:59 Order name: EKG - Nurse/Tech; Complete Time: 23:33 snw 04/26 23:03 Order name: Basic Metabolic Panel; Complete Time: 00:03 EDMS 04/26 23:46 Order name: Urine Dipstick--Ancillary (enter results); Complete Time: 01:07 2 04/26 22:59 Order name: Labs collected and sent; Complete Time: 23:34 snw 04/26 22:59 Order name: Urine Dipstick-Ancillary (obtain specimen); Complete Time: 23:33 snw Administered Medications: 01:44 Drug: Tylenol 1000 mg Route: PO; ed1 02:25 Follow up: Response: No adverse reaction; Pain is decreased ed1 Disposition: 04/27/19 01:14 Transfer ordered to Psych Facility. Diagnosis is Suicidal ideations. - Reason for transfer: Specialty. - Accepting physician is Dr. Melissa. - Condition is Stable. - Problem is new. - Symptoms have worsened. Addendum: 04/29/2019 08:25 Co-signature as Attending Physician, Kendrick Montelongo MD I agree with the assessment and c guallpa plan of care. Signatures: Dispatcher [employer] EDMS Kendrick Montelongo MD MD cha Therrien, Shelly, DRY PLACER MACHINE OPERATOR-C DRY PLACER MACHINE OPERATOR-Csnw Kyra Greenberg RN RN ed1 OraliaGerber, RN RN jd3 Corrections: (The following items were deleted from the chart) 04/26 22:54 22:53 Social history: Smoking status: Patient uses tobacco products, denies chronic jd3 smoking, but will smoke occasionally, chewing tobacco, jd3 23:34 22:59 IV Saline Lock ordered. snw ed1 04/27 00:44 00:41 Chest/axilla: Inspection: ecchymosis, that is mild, that is moderate, of the snw anterior aspect of left upper chest Palpation: tenderness, that is mild, that is moderate, of the anterior aspect of left upper chest, Axilla: ecchymosis, snw 02:25 01:14 04/27/2019 01:14 Transfer ordered to [facility]. Diagnosis is Suicidal ed1 ideations. Reason for transfer: Specialty. Accepting physician is Dr. Melissa. Condition is Stable. Problem is new. Symptoms have worsened. snw
--- NOTE | 2019-04-27 01:15 | ER ---
Nurse's Notes [facility] Name: Antonio Watkins Age: 24 yrs Sex: Male : 1995 Arrival Date: 04/26/2019 Time: 22:44 Bed 17 Private MD: Rohit Jackson Diagnosis: Suicidal ideations Presentation: 04/26 22:50 Presenting complaint: Patient states: "there is a lot of shit going on in life. I hear jd3 voices in my head and I just want to end it. I was going to hang myself today, but I couldn't.". Transition of care: patient was not received from another setting of care. Onset of symptoms was April 26, 2019. Risk Assessment: Do you want to hurt yourself or someone else? Patient reports no desire to harm self or others. Initial Sepsis Screen: Does the patient meet any 2 criteria? No. Patient's initial sepsis screen is negative. Does the patient have a suspected source of infection? No. Patient's initial sepsis screen is negative. Care prior to arrival: None. 22:50 Method Of Arrival: Ambulatory jd3 22:50 Acuity: NEO 2 jd3 Historical: - Allergies: 22:54 No Known Allergies; jd3 - Home Meds: 22:54 None [Active]; jd3 - PMHx: 22:54 Heart Murmur; jd3 - PSHx: 22:54 None; jd3 - Immunization history:: Adult Immunizations up to date. - Social history:: Smoking status: Patient uses tobacco products, denies chronic smoking, but will smoke occasionally, chewing tobacco, Patient uses alcohol, on a daily basis. - Ebola Screening: : Patient negative for fever greater than or equal to 101.5 degrees Fahrenheit, and additional compatible Ebola Virus Disease symptoms. Screenin:35 Abuse screen: Denies threats or abuse. Denies injuries from another. Nutritional ed1 screening: No deficits noted. Tuberculosis screening: No symptoms or risk factors identified. Fall Risk None identified. Assessment: 23:35 General: Appears in no apparent distress. Behavior is calm, cooperative. Pain: Denies ed1 pain. Neuro: Level of Consciousness is awake, alert, obeys commands, Oriented to person, place, time, situation. Cardiovascular: Denies chest pain, Heart tones S1 S2 present. Respiratory: Airway is patent Respiratory effort is even, unlabored, Respiratory pattern is regular, symmetrical, Breath sounds are clear bilaterally. Denies cough, shortness of breath. GI: No signs and/or symptoms were reported involving the gastrointestinal system. : No signs and/or symptoms were reported regarding the genitourinary system. EENT: No signs and/or symptoms were reported regarding the EENT system. Derm: Skin is intact, is healthy with good turgor, Skin is dry, Skin is normal, Skin temperature is warm. Musculoskeletal: Circulation, motion, and sensation intact. Range of motion: limited in left shoulder Reports previous injury to left pectoral muscle. 04/27 00:00 Reassessment: No changes from previously documented assessment. Patient and/or family ed1 updated on plan of care and expected duration. Pain level reassessed. Patient is alert, oriented x 3, equal unlabored respirations, skin warm/dry/pink. Pt reports audio hallucinations. Pt states that the voices are telling him to hang himself. Pt has family members at bedside. Patient denies pain at this time. 00:59 Reassessment: Report given to Megan Jesus\\ [facility]. ed1 01:03 Reassessment: Report given to Abilio Fatima ([phone]) \\T\\ Felix Schmitt. Dr. Dasilva ed1 ([phone]). 01:07 Reassessment: No changes from previously documented assessment. Patient and/or family ed1 updated on plan of care and expected duration. Pain level reassessed. Patient is alert, oriented x 3, equal unlabored respirations, skin warm/dry/pink. Pt. currently has family at bedside. Patient denies pain at this time. 01:42 Neuro: Reports headache in entire parietal area, frontal area, Pt states "I think I am ed1 anxious about going to this facility and it is giving me a headache." Heather notified. new order received. 02:17 Reassessment: Patient and/or family updated on plan of care and expected duration. Pain ed1 level reassessed. Patient is alert, oriented x 3, equal unlabored respirations, skin warm/dry/pink. Report given to [facility]. Personal belongings released to [facility] Patient states feeling better. Patient states symptoms have improved. Psych: 04/26 22:56 Subjective: Patient's mood is sad, Delusions are denied, Hallucinations are auditory, jd3 Having thoughts of suicide. Plan for suicide is hanging. Objective: Patient is cooperative, Speech is normal, Affect is appropriate. Suicide Risk Assessment: Sad Person Scale: Sex of patient: Male: Score 1 point. Age of patient: Score 1 point if patient 15-34. Depression: Score 1 point if signs of depression are present. Previous Attempt: Score 1 point if patient has previously attempted suicide. Substance Abuse: Score 1 point if patient abuses alcohol or drugs. Rational Thinking: Score 0 point if patient has rational thinking. Social Support: Score 0 if social support is present/available. Organized Plan: Score 1 point if patient had a plan in place. Relationship: Score 0 point if patient has a spouse or domestic partner. Chronic Sickness: Score 0 point if patient does not have a chronic illness, debilitating, or severe disorder. TOTAL POINTS: If total points are 5-6, proposed clinical action is to strongly consider hospitalization, depending upon confidence in the follow-up arrangement. Implement suicide precautions. Patient uses daily. 23:00 Interventions: Removed personal items and placed in bag. Patient placed in hospital jd3 gown. Searched person for dangerous items. Belonging list filled out. Safety Checks: Personal items have been removed. Door is open. Visitors are present. sitter at bedside. 23:35 Commitment: Patient will be a voluntary commitment. ed1 Vital Signs: 22:55 BP 141 / 66; Pulse 105; Resp 17 S; Temp 98.4(O); Pulse Ox 97% on R/A; Weight 81.65 kg jd3 (R); Height 5 ft. 6 in. (167.64 cm) (R); Pain 0/10; 04/27 01:15 BP 141 / 72; Pulse 94; Resp 16; Temp 97.9(O); Pulse Ox 98% on R/A; Pain 0/10; ed1 01:42 Pain 8/10; ed1 02:17 BP 139 / 80; Pulse 97; Resp 17; Temp 98.1(O); Pulse Ox 100% on R/A; Pain 5/10; ed1 04/26 22:55 Body Mass Index 29.05 (81.65 kg, 167.64 cm) jd3 01:42 Pt. just reported headache ed1 ED Course: 04/26 22:44 Patient arrived in ED. es 22:45 Rohit Jackson MD is Private Physician. es 22:53 Triage completed. jd3 22:55 Arm band placed on. jd3 22:59 Kyra Greenberg, RN is Primary Nurse. ed1 22:59 Heather Montes De Oca FNP-C [facility]. snw 22:59 Kendrick Montelongo MD is Attending Physician. snw 23:00 Safety Checks: Personal items have been removed. The door is open or patient has been ed1 placed in a hallway bed/chair. A family member and/or friend is present and encouraged to stay. Sitter present at this time. 23:15 Safety Checks: Personal items have been removed. The door is open or patient has been ed1 placed in a hallway bed/chair. A family member and/or friend is present and encouraged to stay. Sitter present at this time. 23:30 Safety Checks: Personal items have been removed. The door is open or patient has been ed1 placed in a hallway bed/chair. A family member and/or friend is present and encouraged to stay. Sitter present at this time. 23:35 Patient has correct armband on for positive identification. Placed in gown. Bed in low ed1 position. Call light in reach. Adult w/ patient. Sitter at bedside. 23:35 Initial lab(s) drawn, by me, sent to lab. Urine collected: clean catch specimen, EKG ed1 done, by ED staff, reviewed by Kendrick Montelongo MD. 23:45 Safety Checks: Personal items have been removed. The door is open or patient has been ed1 placed in a hallway bed/chair. A family member and/or friend is present and encouraged to stay. Sitter present at this time. 04/27 00:00 Safety Checks: Personal items have been removed. The door is open or patient has been ed1 placed in a hallway bed/chair. A family member and/or friend is present and encouraged to stay. Sitter present at this time. 00:15 Safety Checks: Personal items have been removed. The door is open or patient has been ed1 placed in a hallway bed/chair. A family member and/or friend is present and encouraged to stay. Sitter present at this time. 00:30 Safety Checks: Personal items have been removed. The door is open or patient has been ed1 placed in a hallway bed/chair. A family member and/or friend is present and encouraged to stay. Sitter present at this time. 00:32 Basic Metabolic Panel Sent. ed1 00:34 Patient's clinicals faxed to all [facility] facilities. mw2 00:45 Safety Checks: Personal items have been removed. The door is open or patient has been ed1 placed in a hallway bed/chair. A family member and/or friend is present and encouraged to stay. Sitter present at this time. 01:00 Safety Checks: Personal items have been removed. The door is open or patient has been ed1 placed in a hallway bed/chair. A family member and/or friend is present and encouraged to stay. Sitter present at this time. 01:15 Safety Checks: Personal items have been removed. The door is open or patient has been ed1 placed in a hallway bed/chair. A family member and/or friend is present and encouraged to stay. Sitter present at this time. 01:15 Resting quietly. transfer transportation to receiving facility. ed1 01:30 Resting quietly. transfer transportation to receiving facility. Safety Checks: Personal ed1 items have been removed. The door is open or patient has been placed in a hallway bed/chair. A family member and/or friend is present and encouraged to stay. Sitter present at this time. 01:45 Resting quietly. transfer transportation to receiving facility. Safety Checks: Personal ed1 items have been removed. The door is open or patient has been placed in a hallway bed/chair. A family member and/or friend is present and encouraged to stay. Sitter present at this time. 02:00 Resting quietly. transfer transportation to receiving facility. Safety Checks: Personal ed1 items have been removed. The door is open or patient has been placed in a hallway bed/chair. A family member and/or friend is present and encouraged to stay. Sitter present at this time. 02:15 Resting quietly. transfer transportation to receiving facility. Safety Checks: Personal ed1 items have been removed. The door is open or patient has been placed in a hallway bed/chair. A family member and/or friend is present and encouraged to stay. Sitter present at this time. 02:17 No provider procedures requiring assistance completed. Patient did not have IV access ed1 during this emergency room visit. Administered Medications: 01:44 Drug: Tylenol 1000 mg Route: PO; ed1 02:25 Follow up: Response: No adverse reaction; Pain is decreased ed1 Outcome: 01:14 ER care complete, transfer ordered by MD. stoner 02:17 Transferred by ground EMS [facility]. Note: [facility] ed1 02:17 Condition: stable 02:17 Discharge instructions given to patient, family, Instructed on the need for transfer, Demonstrated understanding of instructions. 02:25 Patient left the ED. ed1 Signatures: Heather Montes De Oca, MECHANICAL TEST ENGINEER-C MECHANICAL TEST ENGINEER-Csnw Katalina Adam Erika RN RN ed1 Gerber Barton RN RN jd3 [place], MyKena mw2 Corrections: (The following items were deleted from the chart) 04/26 22:54 22:53 Social history: Smoking status: Patient uses tobacco products, denies chronic jd3 smoking, but will smoke occasionally, chewing tobacco, j 23:12 22:50 Presenting complaint: Patient states: "there is a lot of shit going on in life. I jd3 hear voices in my head and I just want to end it." j 23:12 22:50 Presenting complaint: Patient states: "there is a lot of shit going on in life. I jd3 hear voices in my head and I just want to end it. I was going to hand myself today, but I couldn't." [facility] 04/27 01:55 01:15 Safety Checks: Personal items have been removed. The door is open or patient has ed1 been placed in a hallway bed/chair. A family member and/or friend is present and encouraged to stay. Sitter present at this time. ed1 02:25 02:17 Reassessment: Patient and/or family updated on plan of care and expected ed1 duration. Pain level reassessed. Patient is alert, oriented x 3, equal unlabored respirations, skin warm/dry/pink. Report given to [facility] Patient states feeling better. Patient states symptoms have improved. ed1
[2019-04-27] MEDS ORDERED: ACETAMINOPHEN 500 MG TAB ONE (01:55)
--- NOTE | 2019-04-27 08:06 | EKG ---
Test Date: 2019-04-26 Test Time: 23:29:06 Pairing Machine Operator: [id number] MEASUREMENT RESULTS: Intervals: Rate: 101 AL: 128 QRSD: 96 QT: 316 QTc: 409 [place]: P: 66 AL: 128 QRS: 84 T: -4 INTERPRETIVE STATEMENTS: Sinus tachycardia ST & T wave abnormality, ,non specific Possible Left ventricular hypertrophy Abnormal ECG Compared to ECG 04/23/2019 23:14:26 ST (T wave) deviation now present Electronically Signed On 04-27-19 08:06:14 CDT by Dawit Villanueva
== END 2019-04-27 02:25 ==
LOC: ER 22:41
DX: R45.851 Suicidal ideations (principal); Z72.0 Tobacco use
CPT/HCPCS: 36415; 80048; 80076; 80307; 80320; 80329; 81003; 85025; 85610; 85730; 93005; 99285

== ENCOUNTER 2022-04-12 05:47 | Emergency (ER) | payer BC ==
--- OUTSIDE RECORDS SUMMARY | 2022-04-12 05:50 | XMS REPORT | Continuity of Care Document ---
:1995 Author Organization [facility] t Address [address] [place] [address] [address] [place] [address] Care Team Providers Name Role Phone WATERS_S Attending Clinician Unavailable Yanez Attending Clinician [phone] Lab, Fam Pob I Attending Clinician Unavailable Flori REYNA Attending Clinician Jorge Luis PATTON Attending Clinician FLORI Attending Clinician Unavailable Doctor Unassigned, Name Attending Clinician Unavailable WATERS_S Admitting Clinician Unavailable Payers Payer Name Policy Type Policy Number Effective Date Expiration Date S g[place] [id number] 2021 00:00:00 Problems This patient has no known problems. Allergies, Adverse Reactions, Alerts Allergy Allergy Status Severity Reaction(s) Onset Inactive Treating Comm ents Source Name Type Date Date Clinician NO KNOWN Drug Active Univers ALLERGIE Class ity of [facility] Social History Social Habit Start Date Stop Date Quantity Comments [facility] to [facility] Smoking Status Start Date Stop Date Source Unknown if ever smoked [facility] Medications This patient has no known medications. Procedures This patient has no known procedures. Encounters Start End Encounter Admission Attending Care Care Encounter Source Date/Time Date/Time Type Type Clinicians Facility Department ID 2022-01-15 2022-01-[address] [facility] [id number] [place] 02:27:00 02:27:[facility] 2021-12-11 2021-12-[address] [facility] [id number] [place] 04:47:00 04:47:00 [facility] 2021-11-06 2021-11-[address] [id number] [place] 03:02:00 03:02:00 1225 [facility] 2021-10-01 2021-10-[address] [id number] [place] 10:50:00 10:50:00 1119 [facility] 2021-10-01 2021-10-[address] [facility] [id number] 00:00:00 00:00:00 Heather [id number] 2020-10-10 Laboratory Lab, Adc Fam Pob I [facility] [id number] Univers 08:24:03 08:44:03 Only Carlos Ruby [id number] ity of [place] Kang [place] [id number] [facility] [phone] [place] [address] [address] 2020-10-10 2020-10-10 Outpatient R FLORI [facility] [id number] Univers 08:20:00 08:20:00 CARLOS corona of [facility] 2020-10-10 2020-10-10 Letter Doctor CARLOS [id number] Univers 00:00:00 00:00:00 (Out) Unassigned, KANG [id number] ity of [place] [facility] [id number] [facility] [place] as [phone] [address] Results This patient has no known results.
--- NOTE | 2022-04-12 07:47 | RAD REPORT ---
EXAM DESCRIPTION: RAD - Wrist Right 3 View - 04/12/2022 6:27 am CLINICAL HISTORY: PAIN COMPARISON: No comparisons FINDINGS/IMPRESSION: No acute fracture. No malalignment. No significant focal degenerative changes.
--- NOTE | 2022-04-12 08:20 | EDPHYS ---
Physician Documentation [facility] Name: Antonio Watkins Age: 26 yrs Sex: Male : 1995 Arrival Date: 04/12/2022 Time: 05:51 Bed 16 Private MD: ED Physician Dave Kearns HPI: 04/12 08:21 This 26 yrs old Male presents to ER via Ambulatory with complaints of Wrist ms3 Injury. 08:21 The patient or guardian reports pain. The complaints affect the right wrist diffusely. ms3 Context: resulted from a fall, from a standing position. Onset: The symptoms/episode began/occurred acutely, 2 day(s) ago. Modifying factors: The symptoms are alleviated by nothing, the symptoms are aggravated by movement. Associated signs and symptoms: Pertinent negatives: decreased sensation distally, nausea, numbness distally, tingling distally. Compartment Syndrome negative for numbness, tingling. Historical: - Allergies: 06:01 No Known Allergies; lp1 - Home Meds: 06:01 None [Active]; lp1 - PMHx: 06:01 Heart Murmur; lp1 - PSHx: 06:01 None; lp1 - Immunization history:: Adult Immunizations up to date, Client reports having NOT received the Covid vaccine. - Social history:: Smoking status: Patient denies any tobacco usage or history of. ROS: 08:21 Constitutional: Negative for fever, and chills. Eyes: Negative for injury, pain, ms3 redness, and discharge, Neck: Negative for injury, pain, and swelling, Cardiovascular: Negative for chest pain, and palpitations. Respiratory: Negative for shortness of breath, cough, wheezing, and pleuritic chest pain, Abdomen/GI: Negative for abdominal pain, nausea, vomiting, diarrhea, and constipation. 08:21 Skin: Negative for injury, rash, and discoloration. 08:21 MS/extremity: Positive for swelling, tenderness. 08:21 All other systems are negative. Exam: 08:21 Hand exam: Exam is positive for pain, swelling, ROM: limited active range of motion due ms3 to pain, in the Right Wrist, Pulses: noted to be 2+ in the right radial artery, sensation intact. Compartment Syndrome exam of affected extremity: is normal. 08:21 Constitutional: This is a well developed, well nourished patient who is awake, alert, and in no acute distress. Head/Face: Normocephalic, atraumatic. Neck: Trachea midline, no cervical lymphadenopathy. Supple, full range of motion without nuchal rigidity, or vertebral point tenderness. No Meningismus. Chest/axilla: Normal chest wall appearance and motion. Nontender with no deformity. Cardiovascular: Regular rate and rhythm with a normal S1 and S2. No gallops, murmurs, or rubs. Normal PMI, no JVD. No pulse deficits. Respiratory: Lungs have equal breath sounds bilaterally, clear to auscultation and percussion. No rales, rhonchi or wheezes noted. No increased work of breathing, no retractions or nasal flaring. Abdomen/GI: Soft, non-tender, with normal bowel sounds. No distension or tympany. No guarding or rebound. No evidence of tenderness throughout. Skin: Warm, dry with normal turgor. Normal color with no rashes, no lesions, and no evidence of cellulitis. Psych: Awake, alert, with orientation to person, place and time. Behavior, mood, and affect are within normal limits. Vital Signs: 06:00 BP 127 / 77; Pulse 63; Resp 18; Temp 97.6(TE); Pulse Ox 100% on R/A; Weight 84.82 kg lp1 (R); Height 5 ft. 6 in. (167.64 cm) (R); Pain 5/10; 06:00 Body Mass Index 30.18 (84.82 kg, 167.64 cm) lp1 MDM: 07:33 Patient medically screened. ms3 08:21 Differential diagnosis: dislocation, closed fracture, contusion. Data reviewed: vital ms3 signs, nurses notes, radiologic studies, plain films. Counseling: I had a detailed discussion with the patient and/or guardian regarding: the historical points, exam findings, and any diagnostic results supporting the discharge/admit diagnosis, radiology results, the need for outpatient follow up, to return to the emergency department if symptoms worsen or persist or if there are any questions or concerns that arise at home. ED course: Discussed wrist X-ray, physical exam findings with patient. Patient to follow-up with in 1 week. Patient understands and agrees with plan. All questions were answered. Return precautions discussed include worsening symptoms, or any other concerns. Discussed with patient acute subtle non-displaced fractures may not appear on acute x-ray. If pain persists patient may require repeat imaging in 1 week. On re-evaluation patient is a/o x4, nad, non-toxic, ambulatory in ED, compartment syndrome not present.. 04/12 06:05 Order name: Wrist Right 3 View XRAY; Complete Time: 08:14 lp1 04/12 08:18 Order name: Splint - Wrist; Complete Time: 08:58 ms3 Administered Medications: No medications were administered Disposition Summary: 04/12/22 08:20 Discharge Ordered Location: Home ms3 Problem: new ms3 Symptoms: are unchanged ms3 Condition: Stable ms3 Diagnosis - Pain in right wrist ms3 Followup: ms3 - With: Estevan High MD - When: 1 week - Reason: Recheck today's complaints Discharge Instructions: - Discharge Summary Sheet ms3 - Wrist Pain, Adult, [id number] ms3 Forms: - Medication Reconciliation Form ms3 - Thank You Letter ms3 - Work release form ph - Antibiotic Education ms3 - Prescription Opioid Use ms3 Prescriptions: - Ibuprofen 600 mg Oral Tablet - take 1 tablet by ORAL route every 6 hours As needed take with food; 30 tablet; ms3 Refills: 0, Product Selection Permitted Signatures: Dispatcher [employer] Sarah Rosario RN RN lp1 Dave Kearns DO DO ms3
--- NOTE | 2022-04-12 08:20 | ER ---
Nurse's Notes [facility] Name: Antonio Watkins Age: 26 yrs Sex: Male : 1995 Arrival Date: 04/12/2022 Time: 05:51 Bed 16 Private MD: Diagnosis: Pain in right wrist Presentation: 04/12 06:00 Chief complaint: Patient states: Fell on wrist while playing basketball 2 days ago; lp1 Reports continued pain to site and swelling. Coronavirus screen: At this time, the client does not indicate any symptoms associated with coronavirus-19. Ebola Screen: No symptoms or risks identified at this time. Risk Assessment: Do you want to hurt yourself or someone else? Patient reports no desire to harm self or others. Onset of symptoms was April 12, 2022. 06:00 Method Of Arrival: Ambulatory lp1 06:00 Acuity: NEO 4 lp1 06:00 Initial Sepsis Screen: Does the patient meet any 2 criteria? No. Patient's initial lp1 sepsis screen is negative. Does the patient have a suspected source of infection? No. Patient's initial sepsis screen is negative. Historical: - Allergies: 06:01 No Known Allergies; lp1 - Home Meds: 06:01 None [Active]; lp1 - PMHx: 06:01 Heart Murmur; lp1 - PSHx: 06:01 None; lp1 - Immunization history:: Adult Immunizations up to date, Client reports having NOT received the Covid vaccine. - Social history:: Smoking status: Patient denies any tobacco usage or history of. Assessment: 06:34 Reassessment: No changes from previously documented assessment. The pt was brought back sophy to room #16 at this time. Vital Signs: 06:00 BP 127 / 77; Pulse 63; Resp 18; Temp 97.6(TE); Pulse Ox 100% on R/A; Weight 84.82 kg lp1 (R); Height 5 ft. 6 in. (167.64 cm) (R); Pain 5/10; 06:00 Body Mass Index 30.18 (84.82 kg, 167.64 cm) lp1 ED Course: 05:51 Patient arrived in ED. ja2 06:00 Arm band placed on left wrist. lp1 06:01 Triage completed. lp1 06:28 Wrist Right 3 View XRAY In Process Unspecified. EDMS 06:34 Yamila Garcia, RN is Primary Nurse. sophy 06:46 Aníbal Levin MD is Attending Physician. mh7 07:14 Attending Physician role handed off by Aníbal Levin MD ms3 07:14 Dave Kearns DO is Attending Physician. ms3 08:19 Estevan High MD is Referral Physician. ms3 Administered Medications: No medications were administered Medication: 06:02 VIS not applicable for this client. lp1 Outcome: 08:20 Discharge ordered by . ms3 08:58 Patient left the ED. ph Signatures: Dispatcher [employer] EDMS Sarah Gabriel RN RN lp1 Laurita Omalley RN RN Dave Kearns DO DO ms3 Aníbal Levin MD MD [facility] Inga Juares Yamila Garcia RN RN bo Corrections: (The following items were deleted from the chart) 06:05 06:00 84.82 kg Reported; Height 5 ft. 6 in. Reported; BMI: 30.1; Pain 5/10; lp1 lp1
[2022-04-12 09:25] VITALS: BP 127/77; TEMP 97.6; O2SAT 100
== END 2022-04-12 08:58 | disposition home or self-care (01) ==
LOC: ER 05:47
DX: M25.531 Pain in right wrist (principal)
CPT/HCPCS: 99282

== ENCOUNTER 2025-04-03 00:32 | Emergency (ER) | payer BC ==
--- OUTSIDE RECORDS SUMMARY | 2025-04-03 00:35 | XMS REPORT | Continuity of Care Document ---
Author Name Unknown Address [address] [place] [address] Organization [facility] [place] Address [address] [place] [address] Care Team Providers Care Acid Polymerization Operator Name Role Phone MANI_Vinh Attending Clinician Unavailable Heather Yanez Attending Clinician [phone] Lab, Adc Fam Pob I Attending Clinician Unavailab Carlos Dorsey PA-C Attending Clinician [phone] Tomeka Wilde Attending Clinician [phone] CARL[address] Attending Clinician Unavailable Doctor Unassigned, [place] Attending Clinician U navailable ANASTASIIA Admitting Clinician Unavailable Payers Payer Name Policy Type Policy Number Effective Date Expirati on Date Source [place] [id number] 2021 00:00:00 Problems Condition Name Condition Details Condition Category Status Onset Date Resolution Date Last Treatment Date Treating Clinician Comments Source Gastroesop hageal reflux disease Gastroesop hageal Reflux Disease Problem Active 2023-11 00:00: 00 [facility] Anxiety Anxiety Problem Active 2023-11 00:00: 00 [facility] Fatigue Fatigue Problem Active 2023-11 00:00: 00 [facility] Elevated blood-pres sure reading without diagnosis of hypertensi on Elevated Blood-pres sure Reading without Diagnosis of Hypertensi on Problem Active 2023-1118 00:00: 00 [facility] Allergies, Adverse Reactions, Alerts Allergy Name Allergy Type Status Severity Reaction(s) Onset Date Inactive Date Treating Clinician Comments Source NO KNOWN ALLERGIE S Drug Class Active [facility] Social History Social Habit Start Date Stop Date Quantity Comments Source Sex Assigned At [facility] Exposure to SARS-CoV-2 (event) Yes [facility] Smoking Status Start Date Stop Date Source Unknown if ever [facility] Never Smoker [facility] Medications Ordered Medication Name Filled Medication Name Start Date Stop Date Current Medication? Ordering Clinician Indication Dosage Frequency Signature (SIG) Comments Components Source propranolol 10 mg tablet Take 1 tablet 3 times a day by oral route as needed, for anxiety. propranolol 10 mg tablet Take 1 tablet 3 times a day by oral route as needed, for anxiety. No 1 TID propranolo l 10 mg tablet Take 1 tablet 3 times a day by oral route as needed, for anxiety. [facility] pantoprazol e 40 mg tablet,ashish yed release Take 1 tablet every day by oral route for 90 days. pantoprazol e 40 mg tablet,ashish yed release Take 1 tablet every day by oral route for 90 days. No 1 Q1D pantoprazo le 40 mg tablet,del ayed release Take 1 tablet every day by oral route for 90 days. [facility] desvenlafax ine succinate ER 100 mg tablet,exte nded release 24 hr Take 1 tablet every day by oral route for 30 days. desvenlafax ine succinate ER 100 mg tablet,exte nded release 24 hr Take 1 tablet every day by oral route for 30 days. No 1 Q1D desvenlafa xine succinate ER 100 mg tablet,ext ended release 24 hr Take 1 tablet every day by oral route for 30 days. [facility] Vital Signs Vital Name Observation Time Observation Value Comments S ource Height 2025-01-21 00:00:00 66 [in_i] [facility] Height 2024-10-30 00:00:00 66 [in_i] [facility] BP Diastolic 2024-10-30 00:00:00 80 mm[Hg] [facility] BMI (Body Mass Index) 2024-10-30 00:00:00 30.7 kg/m2 [facility] BP Systolic 2024-10-30 00:00:00 135 mm[Hg] [facility] Body Weight 2024-10-30 00:00:00 3040 [oz_av] [facility] BMI (Body Mass Index) 2024-10-03 00:00:00 30.7 kg/m2 [facility] Height 2024-10-03 00:00:00 66 [in_i] [facility] Body Weight 2024-10-03 00:00:00 3040 [oz_av] [facility] BMI (Body Mass Index) 2024-08-30 00:00:00 30.7 kg/m2 [facility] BP Diastolic 2024-08-30 00:00:00 82 mm[Hg] [facility] Body Weight 2024-08-30 00:00:00 3040 [oz_av] [facility] BP Systolic 2024-08-30 00:00:00 155 mm[Hg] [facility] Height 2024-08-30 00:00:00 66 [in_i] [facility] BP Diastolic 2021-10-01 00:00:00 68 mm[Hg] [facility] Height 2021-10-01 00:00:00 66 [in_i] [facility] BMI (Body Mass Index) 2021-10-01 00:00:00 28.9 kg/m2 [facility] BP Systolic 2021-10-01 00:00:00 134 mm[Hg] [facility] Body Weight 2021-10-01 00:00:00 2860.8 [oz_av] [facility] Encounters Start Date/Time End Date/Time Encounter Type Admission Type Attending Clinicians Care Facility Care Department Encounter ID Source 2025-01-21 00:00:00 2025-01-21 00:00:00 ELSI Crocker C: [address] [place] [address] , Ph. 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 [facility] [id number] [address] [facility] 2024-10-03 00:00:00 2024-10-03 00:00:00 Alyssa MurrayJAMIE-FUR FINISHER SEAMSTRESS-B C: [address] [place] [address] , Ph. [facility] [address] [facility] 2024-08-30 00:00:00 2024-08-30 00:00:00 Alyssa AugustoJAMIE noguera-FUR FINISHER SEAMSTRESS-B C: [address] [id number] , Ph. [facility] [address] [facility] 2022-01-15 02:27:00 2022-01-15 02:27:00 Outpatient [facility] [id number] [facility] 2021-12-11 04:47:00 2021-12-11 04:47:00 Outpatient [facility] [id number] [facility] 2021-11-06 03:02:00 2021-11-06 03:02:00 Outpatient [facility] [id number] [facility] 2021-10-01 10:50:00 2021-10-01 10:50:00 Outpatient [facility] [id number] [facility] 2021-10-01 00:00:00 2021-10-01 00:00:00 AMERICO ManceraFLOAT OPERATOR-C: [address], [address], [place] [address] , Ph. [facility] [place] [facility] [id number] [facility] 2021-10-01 00:00:00 2021-10-01 00:00:00 Outpatient Heather Yanez [facility] [id number] 08:24:03 2020-10-10 08:44:03 Laboratory Only Lab, [facility] [id number] [facility] 2020-10-10 08:20:00 2020-10-10 08:20:00 Outpatient CARLOS RAMIREZ [facility] [id number] [facility] 2020-10-10 00:00:00 2020-10-10 00:00:00 Letter (Out) Doctor Unassigned, [place] [facility] [id number] [facility]
[2025-04-03] MEDS ORDERED: DERMABOND SKIN ADHESIVE TOP ONE (01:18)
[2025-04-03] MEDS ORDERED: LIDOCAINE 1% MPF 5 ML VIAL ONE (01:22)
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
[2025-04-03] MEDS ORDERED: ONDANSETRON 4 MG/2 ML VIAL ONE (02:37)
[2025-04-03] MEDS ORDERED: MORPHINE 4 MG/ML SYR ONE (02:38)
[2025-04-03 02:40] VITALS: TEMP 98
[2025-04-03 02:47] VITALS: BP 134/80; O2SAT 98
== END 2025-04-03 02:41 | disposition short-term general hospital (02) ==
LOC: ER 00:32
DX: S06.5X0A Traumatic subdural hemorrhage without loss of consciousness, initial encounter (principal); S01.311A Laceration without foreign body of right ear, initial encounter; S01.81XA Laceration without foreign body of other part of head, initial encounter; Y04.8XXA Assault by other bodily force, initial encounter
CPT/HCPCS: 70450; 72125; 70486; 76377; 96375; 96374; 99285; 12051; J2003; J2405